=== PATIENT | male | born 1945 | race Caucasian/White ===

== ENCOUNTER 2016-11-28 12:56 | Outpatient (CLI) | payer MEDICARE, OTHER ==
[2015-05-06 22:48] VITALS: BP 124/62
== END 2016-11-28 12:57 ==
LOC: CARD 12:56
PROVIDERS: ATTEND Internal Medicine Cardiovascular Disease
DX: I48.3 Typical atrial flutter (principal)
CPT/HCPCS: G0463

== ENCOUNTER 2017-11-20 12:46 | Outpatient (CLI) | payer MEDICARE, OTHER ==
[2015-05-06 22:48] VITALS: BP 124/62
== END 2017-11-20 13:00 ==
LOC: CARD 12:46
PROVIDERS: ATTEND Internal Medicine Cardiovascular Disease
DX: I48.91 Unspecified atrial fibrillation (principal); E78.5 Hyperlipidemia, unspecified; I10 Essential (primary) hypertension; E66.9 Obesity, unspecified; G47.30 Sleep apnea, unspecified
CPT/HCPCS: G0463